=== PATIENT | male | born 1975 | race Caucasian/White ===

== ENCOUNTER → 2021-10-05 | Emergency (ER) | payer OTHER ==
[~2021-10-05] VITALS: Ht 167.6 cm; Wt 70.3 kg
[~2021-10-05] MED LIST: CEPH500C2 PO; IBUP-1955 PO; MUPI22OI2 TP; SULF1TAB48 PO
--- NOTE | 2021-10-05 09:55 | NUR ---
BIBS FOR POS ABCESS IN BUTTOCKS AREA. AMBULATORY, PLACED ON BED, [id number].
--- NOTE | 2021-10-05 10:02 | NUR ---
DR BAE AT THE BEDSIDE
--- NOTE | 2021-10-05 10:30 | NUR ---
Patient discharged to home in stable condition. Written and verbal after care instructions given. Patient verbalizes understanding of instruction.
[2021-10-05 10:32] VITALS: BP 165/99
== END | disposition home or self-care (01) ==
LOC: ER 09:49
DX: L02.31 Cutaneous abscess of buttock (principal)